=== PATIENT | male | born 2005 | race Caucasian/White ===

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

== ENCOUNTER 2024-03-09 18:09 | Emergency (ER) | payer MEDICAID | END 2024-03-09 19:10 | LOC: JP.ED 18:09 | DX: S81.011A Laceration without foreign body, right knee, initial encounter (principal); F17.210 Nicotine dependence, cigarettes, uncomplicated; Z79.899 Other long term (current) drug therapy; X58.XXXA Exposure to other specified factors, initial encounter | CPT/HCPCS: 12002; 99284 ==